=== PATIENT | female | born 1985 | race Asian ===

== ENCOUNTER 2017-07-26 14:33 | Emergency (ER) | payer OTHER ==
[2017-07-26 14:51] VITALS: BP 98/61
--- NOTE | 2017-07-26 15:42 | UC ---
Throat Pain/Nasal Tavo HPI - HPI Summary HPI Summary: 32 yo female with one day hx of sore throat and headache no fever chills mild myalgias is 4 mos PP and marked fatigue since delivery reports and no excessive blood loss - History of Current Complaint Chief Complaint: UCGeneralIllness Stated Complaint: RUNNY NOSE/COUGH/FATIGUE Time Seen by Provider: 07/26/17 15:06 Hx Obtained From: Patient Hx Last Menstrual Period: unknown, Mirena IUD Onset/Duration: Gradual Onset, Lasting Hours Severity: Severe Pain Intensity: 9 Pain Scale Used: 0-10 Numeric Cough: None - Epiglottits Risk Factors Epiglottis Risk Factors: Negative - Allergies/Home Medications Allergies/Adverse Reactions: Allergies Allergy/AdvReac Type Severity Reaction Status Date / Time No Known Allergies Allergy Verified 07/26/17 14:47 Home Medications: Home Medications Comb No.42/Folic Acid [Prena1 Chew 1.4 mg] 1 chw PO DAILY 07/26/17 [ History Confirmed 07/26/17] PMH/Surg Hx/FS Hx/Imm Hx Previously Healthy: Yes - Surgical History Surgical History: None - Family History Known Family History: Negative: Cardiac Disease, Hypertension, Diabetes - Social History Alcohol Use: None Substance Use Type: None Smoking Status (MU): Never Smoked Tobacco Review of Systems Constitutional: Chills, Fatigue Skin: Negative Eyes: Negative ENT: Sore Throat Respiratory: Negative Cardiovascular: Negative Gastrointestinal: Negative Genitourinary: Negative Motor: Negative Neurovascular: Negative Musculoskeletal: Negative Neurological: Headache Psychological: Negative Is Patient Immunocompromised?: No All Other Systems Reviewed And Are Negative: Yes Physical Exam Triage Information Reviewed: Yes Appearance: Well-Appearing, No Pain Distress, Well-Nourished Vital Signs: Initial Vital Signs Temp 98.2 F 07/26/17 14:45 Pulse 73 07/26/17 14:45 Resp 16 07/26/17 14:45 BP 98/61 07/26/17 14:45 Pulse Ox 100 07/26/17 14:45 Vital Signs Reviewed: Yes ENT: Positive: Hearing grossly normal, Pharyngeal erythema, TMs normal, Uvula midline. Negative: Nasal congestion, Nasal drainage, TM red, Tonsillar swelling , Tonsillar exudate, Trismus, Muffled voice, Dental tenderness Neck: Positive: Supple, Nontender, No Lymphadenopathy Respiratory: Positive: Lungs clear, Normal breath sounds, No respiratory distress Cardiovascular: Positive: RRR, No Murmur Musculoskeletal: Positive: ROM Intact, No Edema Neurological: Positive: Alert Psychological Exam: Normal Skin Exam: Normal Throat Pain/Nasal Course/Dx - Course Course Of Treatment: strep (+) - Differential Dx/Diagnosis Provider Diagnoses: strep throat. fatigue Discharge - Sign-Out/Discharge Documenting (check all that apply): Discharge/Admit/Transfer - Discharge Plan Condition: Stable Disposition: HOME Prescriptions: Amoxicillin PO (*) [Amoxicillin 875 MG (*)] 875 mg PO BID #20 tab Patient Education Materials: Strep Throat (ED), Fatigue (ED) Referrals: No Primary Care Phys,NOPCP [Primary Care Provider] - Additional Instructions: rest fluids tylenol or advil for pain recheck in 3-4 days if not better blood count pending you need to find a local bridge worker - Billing Disposition and Condition Condition: STABLE Disposition: HOME
[2017-07-26 20:11] LABS: ABS Basophils 0 10^3/ul (0-0.2); ABS Eosinophils 0.4 10^3/ul (0-0.6); ABS Lymphocytes 2.5 10^3/ul (1.0-4.8); ABS Monocytes 0.5 10^3/ul (0-0.8); ABS Neutrophils 2.4 10^3/ul (1.5-7.7); ABS Nucleated RBC 0 10^3/ul; Eosinophil % 6.8 % (0-6); Hematocrit 37 % (35-47); Hemoglobin 12.8 g/dl (12.0-16.0); Lymphocyte % 43.2 % (25-47); Mean Corpuscular HGB Conc 35 g/dl (31-36); Mean Corpuscular Hemoglobin 32 pg (27-31); Mean Corpuscular Volume 91 fL (80-97); Mean Platelet Volume 8.1 um3 (7.4-10.4); Nucleated Red Blood Cells % 0.1; Platelet Count 275 10^3/ul (150-450); Red Blood Count 4.05 10^6/ul (4.0-5.4); Red Cell Distribution Width 13 % (10.5-15); White Blood Count 5.9 10^3/ul (3.5-10.8)
== END 2017-07-26 16:00 | disposition home or self-care (01) ==
LOC: UCCORT 14:33
DX: J02.0 Streptococcal pharyngitis (principal); R53.83 Other fatigue
CPT/HCPCS: 36415; 85025; 87651; 99212; G0463

== ENCOUNTER 2017-08-26 20:14 | Emergency (ER) | payer OTHER ==
[2017-08-26 20:24] VITALS: BP 92/66
[2017-08-26] MEDS ORDERED: Acetaminophen TAB* 325 MG PO ONE (20:42)
[2017-08-26] MEDS ORDERED: Cephalexin CAP* 500 MG PO ONE (20:44)
--- NOTE | 2017-08-26 21:09 | UC ---
Breast Complaint - HPI Summary HPI Summary: Pt presents with c/o sudden onset of right breast tenderness, fever that began today. Pt is . - History of Current Complaint Hx Obtained From: Patient Breast Chief Complaint: Pain, Breast, Right, Palpable Lump Onset/Duration: Still Present Timing: Constant Breast Pain Aggravating Factors: Breast Feeding, Palpation Breast Pain Alleviating Factors: Heat, Pressure Breast Associated Signs/Symptoms: Fever, Nodule/Mass, Redness, Warmth - Additional Pertinent History Breast History: Breastfed Previously with Good Experience - Allergy/Home Medications Allergies/Adverse Reactions: Allergies Allergy/AdvReac Type Severity Reaction Status Date / Time No Known Allergies Allergy Verified 08/26/17 20:24 Home Medications: Home Medications Acetaminophen TAB* [Tylenol TAB*] 650 mg PO Q4H PRN 08/26/17 [History Confirmed 08/26/17] PMH/Surg Hx/FS Hx/Imm Hx Previously Healthy: Yes - Surgical History Surgical History: None - Family History Known Family History: Negative: Cardiac Disease, Hypertension, Diabetes - Social History Occupation: Employed Full-time Lives: With Family Alcohol Use: None Substance Use Type: None Smoking Status (MU): Never Smoked Tobacco Have You Smoked in the Last Year: No Review of Systems Constitutional: Fever, Chills, Fatigue Skin: Other - erythema Eyes: Negative ENT: Negative Respiratory: Negative Cardiovascular: Negative Gastrointestinal: Negative Genitourinary: Negative Motor: Negative Neurovascular: Negative Musculoskeletal: Myalgia Neurological: Headache Psychological: Negative Is Patient Immunocompromised?: No All Other Systems Reviewed And Are Negative: Yes Physical Exam Triage Information Reviewed: Yes Appearance: Ill-Appearing Vital Signs: Initial Vital Signs Temp 100.1 F 08/26/17 20:20 Pulse 91 08/26/17 20:20 Resp 16 08/26/17 20:20 BP 92/66 08/26/17 20:20 Pulse Ox 100 08/26/17 20:20 Vital Signs Reviewed: Yes Eye Exam: Normal ENT: Positive: Hearing grossly normal Dental Exam: Normal Neck exam: Normal Neck: Positive: Supple, Nontender, No Lymphadenopathy Respiratory Exam: Normal Cardiovascular Exam: Normal Musculoskeletal Exam: Normal Neurological Exam: Normal Psychological Exam: Normal Skin Exam: Other - mild erythema around right areola, from 12-3:00" clock position, ~ 1 cm wide, right breast, soft, c/o tenderness at 3 o'clock position , medial to areola, Breast Pain Course/Dx - Differential Diagnoses Differential Diagnosis/HQI/PQRI: Breast Abscess, Mastitis - Diagnoses Provider Diagnoses: Mastitis, right, acute Discharge - Sign-Out/Discharge Documenting (check all that apply): Discharge/Admit/Transfer - Discharge Plan Condition: Stable Disposition: HOME Prescriptions: Cephalexin CAP* [Keflex 500 CAP*] 500 mg PO Q6H #28 cap Fluconazole 100 MG TAB* [Diflucan 100 MG TAB*] 100 mg PO DAILY #2 tab Patient Education Materials: Mastitis (ED) Referrals: Whitney Bergman-MD Barak [Medical Doctor] - If Needed No Primary Care Phys,NOPCP [Primary Care Provider] - Additional Instructions: Please follow up with Dr. Bergman as scheduled or earlier if needed. - Billing Disposition and Condition Condition: STABLE Disposition: Home
== END 2017-08-26 21:01 | disposition home or self-care (01) ==
LOC: UCCORT 20:14
DX: N61.0 Mastitis without abscess (principal)
CPT/HCPCS: 99213; A9270-GY; G0463

== ENCOUNTER 2018-01-18 19:44 | Emergency (ER) | payer OTHER ==
[2018-01-18 20:08] VITALS: BP 95/55
--- NOTE | 2018-01-18 20:16 | UC ---
Skin Complaint HPI - HPI Summary HPI Summary: Pt c/o gradual onset of bialteral outer ear swelling, tenderness and purulent discharge. 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 Pt states that her pinnae are "itchy" and that she scratches at the "pits" and woke with left outer upper pinna swollen, tender and with purulent discharge. - History of Current Complaint Chief Complaint: UCEar Time Seen by Provider: 01/18/18 20:03 Stated Complaint: LEFT EAR PAIN Hx Obtained From: Patient Hx Last Menstrual Period: unknown, Mirena IUD ?: No Onset/Duration: Gradual Onset, Lasting Days, Still Present Skin Exposure Onset/Duration: Days Ago Timing: Constant Onset Severity: Mild Current Severity: Severe Pain Intensity: 10 Location: Ear (Right), Ear (Left) Character: Swelling, Pain Aggravating Factor(s): Touch Alleviating Factor(s): Heat Associated Signs & Symptoms: Positive: Drainage, Tenderness - Allergy/Home Medications Allergies/Adverse Reactions: Allergies Allergy/AdvReac Type Severity Reaction Status Date / Time No Known Allergies Allergy Verified 08/26/17 20:24 Review of Systems All Other Systems Reviewed And Are Negative: Yes Constitutional: Positive: Negative Skin: Positive: Other - swelling, mild erythema Eyes: Positive: Negative ENT: Positive: Other - outer pinna swelling Respiratory: Positive: Negative Cardiovascular: Positive: Negative Gastrointestinal: Positive: Negative Genitourinary: Positive: Negative Motor: Positive: Negative Neurovascular: Positive: Negative Musculoskeletal: Positive: Negative Neurological: Positive: Negative Psychological: Positive: Negative Is Patient Immunocompromised?: No PMH/Surg Hx/FS Hx/Imm Hx Previously Healthy: Yes - Surgical History Surgical History: None - Family History Known Family History: Negative: Cardiac Disease, Hypertension, Diabetes - Social History Occupation: Employed Full-time Lives: With Family Alcohol Use: None Substance Use Type: None Smoking Status (MU): Never Smoked Tobacco Have You Smoked in the Last Year: No Physical Exam Triage Information Reviewed: Yes Appearance: Thin Vital Signs: Initial Vital Signs Temp 98.2 F 01/18/18 20:02 Pulse 76 01/18/18 20:02 Resp 13 01/18/18 20:02 BP 95/55 01/18/18 20:02 Pulse Ox 100 01/18/18 20:02 Vital Signs Reviewed: Yes Eye Exam: Normal ENT Exam: Other ENT: Positive: Other - left upper outer pinna, swelling, tenderness, mild erythema Neck exam: Normal Respiratory Exam: Normal Musculoskeletal Exam: Normal Neurological Exam: Normal Psychological Exam: Normal Skin Exam: Other - left outer pinna swelling, mild erythema, c/o tenderness Course/Dx - Differential Diagnoses - Skin Complaint Differential Diagnoses: Cellulitis - Diagnoses Provider Diagnoses: skin infection Discharge - Sign-Out/Discharge Documenting (check all that apply): Patient Departure All imaging exams completed and their final reports reviewed: No Studies - Discharge Plan Condition: Stable Disposition: HOME Prescriptions: Cephalexin CAP* [Keflex 500 CAP*] 500 mg PO Q8H #30 cap Triamcinolone 0.1% Oint (NF) [Triamcinolone Acetonide] 0.1 % TOPICAL Q12H 7 Days #1 tube Patient Education Materials: Wound Infection (ED), Acute Wound Care (ED) Referrals: Kimberly Mars [Primary Care Provider] - If Needed - Billing Disposition and Condition Condition: STABLE Disposition: Home - Attestation Statements Provider Attestation: I was available for consult. This patient was seen by the RAMESH. The patient was not presented to, seen by, or examined by me. -Dinesh
[2018-01-18] MEDS ORDERED: Cephalexin CAP* 500 MG PO ONE (20:22)
== END 2018-01-18 20:28 | disposition home or self-care (01) ==
LOC: UCCORT 19:44
DX: L08.9 Local infection of the skin and subcutaneous tissue, unspecified (principal)
CPT/HCPCS: 99212; A9270-GY; G0463

== ENCOUNTER 2018-09-03 14:26 | Emergency (ER) | payer OTHER ==
[2018-09-03 15:26] VITALS: BP 105/70
--- NOTE | 2018-09-03 15:58 | UC ---
Throat Pain/Nasal Tavo HPI - HPI Summary HPI Summary: 33-year-old female comes in with a chief complaint of upper respiratory tract infection symptoms body aches and tiredness for one day. She also has a sore throat. She took some acetaminophen which did help with the symptoms. Feels like she needs to sleep. Her [id number] son is also ill with a fever. No complaint of shortness of breath. - History of Current Complaint Chief Complaint: UCGeneralIllness Stated Complaint: CONGESTION HEADACHE TIRED Time Seen by Provider: 09/03/18 15:25 Hx Last Menstrual Period: "a week ago" Pain Intensity: 7 - Allergies/Home Medications Allergies/Adverse Reactions: Allergies Allergy/AdvReac Type Severity Reaction Status Date / Time No Known Allergies Allergy Verified 09/03/18 15:23 Home Medications: Home Medications LoraTADine TAB(NF) [Claritin 10 MG TAB(NF)] 10 mg PO DAILY PRN 09/03/18 [ History Confirmed 09/03/18] PMH/Surg Hx/FS Hx/Imm Hx Previously Healthy: Yes - Surgical History Surgical History: None - Family History Known Family History: Negative: Cardiac Disease, Hypertension, Diabetes - Social History Alcohol Use: None Substance Use Type: None Smoking Status (MU): Never Smoked Tobacco Have You Smoked in the Last Year: No Review of Systems All Other Systems Reviewed And Are Negative: Yes Constitutional: Positive: Chills, Fatigue Skin: Positive: Negative Eyes: Positive: Negative ENT: Positive: Sore Throat, Nasal Discharge, Sinus Congestion Respiratory: Positive: Negative Cardiovascular: Positive: Negative Gastrointestinal: Positive: Negative Motor: Positive: Negative Neurovascular: Positive: Negative Musculoskeletal: Positive: Myalgia Neurological: Positive: Negative Psychological: Positive: Negative Is Patient Immunocompromised?: No Physical Exam Triage Information Reviewed: Yes Appearance: No Pain Distress, Well-Nourished, Ill-Appearing - MILD Vital Signs: Initial Vital Signs Temp 99.2 F 09/03/18 15:20 Pulse 92 09/03/18 15:20 Resp 16 09/03/18 15:20 BP 105/70 09/03/18 15:20 Pulse Ox 100 09/03/18 15:20 Vital Signs Reviewed: Yes Eye Exam: Normal Eyes: Positive: Conjunctiva Clear ENT: Positive: Pharyngeal erythema, Nasal congestion, Nasal drainage, TMs normal Neck: Positive: Supple Respiratory: Positive: Lungs clear, Normal breath sounds, No respiratory distress Cardiovascular: Positive: RRR Musculoskeletal Exam: Normal Musculoskeletal: Positive: Strength Intact, ROM Intact Neurological Exam: Normal Neurological: Positive: Alert, Muscle Tone Normal Psychological Exam: Normal Psychological: Positive: Normal Response To Family, Age Appropriate Behavior Skin Exam: Normal Throat Pain/Nasal Course/Dx - Differential Dx/Diagnosis Provider Diagnosis: Upper respiratory infection Discharge - Sign-Out/Discharge Documenting (check all that apply): Patient Departure All imaging exams completed and their final reports reviewed: No Studies - Discharge Plan Condition: Stable Disposition: HOME Patient Education Materials: Upper Respiratory Infection (ED) Referrals: Kimberly Mars [Primary Care Provider] - Additional Instructions: FOLLOW UP WITH YOUR DOCTOR IF NOT COMPLETELY IMPROVED. GET RECHECKED SOONER IF YOUR CONDITION WORSENS OR ANY QUESTIONS OR CONCERNS. - Billing Disposition and Condition Condition: STABLE Disposition: Home
[2018-09-03 16:27] LABS: Influenza A Molecular NEGATIVE (Negative); Influenza B Molecular NEGATIVE (Negative)
== END 2018-09-03 16:50 | disposition home or self-care (01) ==
LOC: UCCORT 14:26
DX: J06.9 Acute upper respiratory infection, unspecified (principal)
CPT/HCPCS: 87651; 99211; G0463